=== PATIENT | male | born 1950 | race Caucasian/White ===

== ENCOUNTER 2021-11-15 12:43 | Outpatient (RCR) | payer MEDICARE, OTHER, SELFPAY ==
--- NOTE | 2021-11-15 14:43 | HP.OTEVAL ---
Patient's Visit Information HAMILTON RIOS Jr. is a 71 year old M, referred to Occupational Therapy by Dr. Erick Johnson MD, with a diagnosis of hypopharyngeal cancer. 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 The patient participated in radiation therapy from 07/16/2021-08/28/2021. pt and state he had significate swelling of his neck where was very concerned-pt has been working with Nellie in speech therapy with R and was ref'd due to swelling- - Goals Demonstrate a 20% reduction in edema by d/c: Yes Demonstrate adequate knowledge of self-massage by 2nd week: Yes Demonstrate adequate knowledge skin care/prec by 2nd week: Yes Demonstrate adequate knowledge therapeutic exercises by d/c: Yes Select approp compression garment w/donning/care/wear by d/c: Yes Voice need to replace compression garment every 4-6mo by dc: Yes - Rehabilitation General Assessment: pt demo with need for ed. on skin precautions and signs and symptoms of lymphedema a complication from radiation- today pt looks good- noted to have scar adhesions form sx- and noted edema (better but still has especially if he sleeps on his side) pt demo need for OT services to ed. pt and pts family on life long mtg of lymphedema, compression garment, self manual lymph drainage. Rehabilitation Potential: Good - Anticipated Interventions Education re Diagnosis, Manual Lymph Drainage, Education re Life-long lymphedema Management, Education re Skin Care and Precautions, Education re Self Massage Techniques, Education re Correct Donning Tech,Care&Wearing Sched Comp Garments, Caregiver Training, Home Program - Visit Plan TEXT: Thank you for the opportunity to evaluate your patient. For Medicare and Medicare HMO plans, please review the plan of care and approve it. It will need to be FAXED BACK to us at [phone] for Medicare purposes. Please let me know if there are questions or concerns regarding this plan of care. Physician Signature: Date:
--- NOTE | 2022-04-23 13:35 | HP.OT.NRP ---
TYLER ALLEN Jr. was seen in my office for initial evaluation on 11/15/21. The following Plan of Care was established for this patient: Anticipated Interventions: Education re Diagnosis, Manual Lymph Drainage, Education re Life-long lymphedema Management, Education re Skin Care and Precautions, Education re Self Massage Techniques, Education re Correct Donning Tech,Care&Wearing Sched Comp Garments, Caregiver Training, Home Program This patient was last seen in our office 11/15/21. Pertinent comments regarding their Occupational therapy will appear below: pt was seen for eval only- no further apts. scheduled due to time lapse in services pt d/c. At this point I will be discontinuing this patient from occupational therapy. I would be happy to see this patient again in the future if found appropriate by the physician. Thank you! Neelam Aggarwal, OTR/L, CHT
== END 2021-11-15 19:00 | disposition home or self-care (01) ==
LOC: OT 12:43
PROVIDERS: Referring Provider Radiology Radiation Oncology; Visit Provider Radiology Radiation Oncology
DX: C13.9 Malignant neoplasm of hypopharynx, unspecified (principal)
CPT/HCPCS: 97166; 97530

== ENCOUNTER 2021-11-15 14:00 | Outpatient (RCR) | payer MEDICARE, OTHER, SELFPAY ==
--- NOTE | 2021-07-12 15:02 | HP.SP.AD ---
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 Zenker's diverticulum with surgeries. On second surgery, a lump was found. He underwent FEES assessment of swallow on 05/29/2021. Pt was placed on pureed textures / thin liquids. Will need to repeat objective swallow assessment via MBS at this time, as pt has since had a total laryngopharyngectomy. The patient participated in speech evaluation for alaryngeal communication on 06/29/2021. He was provided and trained with an electrolarynx. He utilizes R intraoral buccal placement at this time. 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 The patient is planned for radiation therapy beginning 07/16/2021. Smoking Status: Former smoker - Pain Is pain an issue with your current prescribed condition?: No - Personal Right Hearing Abillity: Normal Left Hearing Abillity: Normal Visual Assistive Devices: Glasses Patients Living Arrangements: , [place] Patient Allergies - Allergies Allergies Penicillins Allergy (Unknown, Verified 06/28/21 13:03) Other as child Subjective Oral Motor - Subjective Patient Reports: Difficulty being Understood Dentures ill fitting: Yes - Comments Comments: Pt utilizes electrolarynx and pen/paper to communicate with others to meet his needs. His reports great difficulty understanding him at times. Pt's dentures are ill fitting from weight loss and impede speech clarity. Pt reports tight sensation in R side of mouth/cheek and occasional soreness in jaw. Objective Oral Motor - Oral Status Dentition: Upper Dentures, Lower Dentures Additional: Ill-fitting. Greatly improved intelligibility with removal of dentures. - Labial Impairment: Moderate Observation at Rest: Left Droop Closure: WNL Pucker: Moderate Retraction: Moderate Alternating Pucker/Retraction: Moderate Involuntary Movement noted: No - Labial Comments Comments: Lower L lip with apparent weakness, noted at rest and with retraction/pucker. - Lingual Impairment: Mild Observation: Deviated Left Protrusion: WNL Retraction: WNL Lateralization: WNL Involuntary Movement: No - Lingual Comments Comments: Mild L deviation. - Jaw Impairment: WNL Opening: WNL Closing: WNL Involuntary Movement: No - Respiratory Status Respiratory Status: Room Air Subjective Dysphagia - Symptoms Reported Symptoms/Problems with: Food gets stuck, Weight Loss, Hx of Aspiration Other: nasal and oral regurgitation - Current Diet Solids Current Diet: Pureed - Current Diet Liquids Current Liquids: Thin - NPO NPO - Alternative Nutrition Method: Gastrostomy Tube Objective Dysphagia - Thin Liquids Administred via: Cup, Straw Oral Holding: No Patient Report: Head turn helps him to clear sensation of food caught - he uses this strategy intermittently at home. Comments: Audible swallow with sequential and single sips of water via cup and straw. - Pureed Oral Holding: No Gagging: No Stasis: None reported. Comments: Audible swallow. Good oral clearance. - Results Swallowing Within Normal Limits: No Swallowing Diagnosis: Oral Phase Dysphagia, Other Dysphagia Additional: Concern for esophageal dysphagia given total pharyngolaryngectomy's impact. Severity: Mild Dysphagia Assessment - Diet Texture Recommendations Solids Other: Pureed Liquids: Thin NPO: Alternative Nutrition/Hydration Recommended Other: Continue with PEG tube feedings. - Safety Saftey Precautions/Swallowing Recommendations (Check all that Apply): Upright Position at Least 30 Minutes After Meals, Small Sips & Bites when Eating Subjective Dysarthria/Motor - Subjective Subjective: Pt's concerned with pt's quick rate of speech and imprecise articulation, especially with dentures in place, impacting intelligibility. Pt frequently utilized notebook to speak. Pt utilizes electrolarynx at this time to produce phonation for speech production. Objective Dysarthira/Motor - Speech Intelligibility Phonemes: Moderate Sentences: Moderate Conversation: Severe - Volume Loudness: Frio loudness - Observation Observation of Apraxia of Speech: No - Awareness/Strategy Use Uses strategies intermittently to improve intelligibility or listener's understanding of message: Yes - Comments Education regarding strategies to improve speech clarity. -: Thorough education re: strategies to improve speech intelligibility (exaggerated articulation of all sounds, clear pause between words, slow rate of speaking, removal of ill fitting dentures). The patient and his expressed that they are not interested in high tech AAC at this time, which had been thoroughly discussed with speech therapist. PRE PRESS MANAGER recommended continuation of use of notepad as low tech AAC option to repair conversational breakdowns. Educated pt's in providing pt feedback by repeating understood words and having pt write to clarify unintelligible responses. Education well received. Results -: In addition to aphonic speech s/p total pharyngolaryngectomy, the patient presents with moderate dysarthria characterized by quick rate of speech and imprecise articulation. Will recommend continued use of electrolarynx at this time with use of strategies to improve speech clarity. Will also recommend continued use of pen/pad to augment communication when experiencing conversational breakdowns. Pt requires continued training in strategies to improve speech intelligibility in conversation. FOIS - Functional Oral Intake Scale Tube dependent with consistent oral intake of food or liquid: Level 3 Plan - Plan Plan: Will recommend the patient for skilled outpatient dysphagia therapy to address oral phase dysphagia related to hypopharyngeal cancer and to provide the patient further education re: oral motor exercise program and diet texture recommendations. Additionally, will provide ongoing assessment of diet tolerance during and post radiation treatment. The patient also requires skilled speech therapy to address aphonia and dysarthria to improve speech production s/p total phayrngolaryngectomy. Without skilled ST services, the patient is at risk for weight loss and malnutrition. - Recommendations MBS: Yes Treatment Warranted: Yes - Frequency Frequency: 1x/Week Duration: 12 Months - Prognosis Prognosis: Good - Goals that are Established: Determination:: Goals will be added/modified as deemed necessary and appropriate. Therapy will be discontinued when results of re-evaluation indicate therapy is no longer needed or lack of progress has been documented. - Goal #1-5 Goal #1: The patient will participate in conversational tasks within a known context using electrolarynx with 90% intelligibility with min cues for use of compensatory strategies. Goal #2: The patient will participate in MBS study to objectively assess swallow function and provide recommendations for safest, least restrictive diet and compensatory strategies to reduce risk for aspiration. Goal #3: The patient will complete oral motor exercise program to improve labial, lingual, and buccal strength, coordination, and ROM independently 3-5X daily to improve speech intelligibility. Goal #4: The patient will consume least restrictive diet textures without esophageal discomfort, sensation of stasis, or oral/nasal regurgitation with 90% accuracy with minimal verbal cues for use of compensatory strategies to improve swallow function. Education - Patient Instruction Patient Education: Diagnosis, Treatment Plan, Goals, Diet Level, Home Exercise Program Other Education: Provided education re: altered anatomy s/p total pharyngolaryngectomy, alaryngeal speech production options (esophageal speech, tracheoesophageal puncture [TEP], electrolarynx), impact of pt's surgery on swallow function, recommendation and rationale for MBS study. Trained pt in oral motor exercises. Pt provided handout. Return demonstration provided for 4 exercises. PRE PRESS MANAGER spoke with Dr. Caruso and RN, Jessica, regarding patient's interest/candidacy in TEP to discuss in upcoming appointments. Per pt, Dr. Ventura informed him he is a potential candidate for TEP. Person Taught: Patient, Family Teaching Method: Discussion, Demonstration, Handout, Audiovisual, Teach back Response to teaching: Return demonstration, Verbalize understanding, Reinforcement needed
--- NOTE | 2021-09-18 12:40 | HP.SP.ADRE_ITS ---
Previous/Current Goals - Goals 1-5 Previous Goal #1: The patient will participate in conversational tasks within a known context using electrolarynx with 90% intelligibility with min cues for use of compensatory strategies. Goal 1 Status: PROGRESSING - In recent sessions, pt with >90% intelligibility with min cues for use of compensatory strategies. Previous Goal #2: The patient will participate in MBS study to objectively assess swallow function and provide recommendations for safest, least restrictive diet and compensatory strategies to reduce risk for aspiration. Goal 2 Status: Plan for MBS study early November 2021. Previous Goal #3: The patient will complete oral motor exercise program to improve labial, lingual, and buccal strength, coordination, and ROM independently 3-5X daily to improve speech intelligibility. Goal 3 Status: GOAL MET Previous Goal #4: The patient will consume least restrictive diet textures without esophageal discomfort, sensation of stasis, or oral/nasal regurgitation with 90% accuracy with minimal verbal cues for use of compensatory strategies to improve swallow function. Goal 4 Status: PROGRESSING - In the past two weeks, he has consumed oatmeal, noodle/shredded chicken soup, eggs. He eats only 1X daily. He reports having heartburn and a bad after taste. The patient is consuming all drinks orally at t his time. Majority of nutrition being met via PEG tube. Jevity via PEG tube (6 cartons over 4 feedings). Pt tolerating trials of ground textures without esophageal discomfort or sensation of stasis. Recommended the patient begin a food log. Encouraged the patient to track calories of oral intake and attempt eating ~400 calories orally prior to decreasing PEG intake by 1 carton of Jevity (355 calories). Recommended eating at least 3 sittings daily (currently only having 1 snack orally per day) and monitoring weight closely. Previous Goal #5: The patient will complete jaw strength, coordination, and ROM exercises during and post radiation treatment X10 repetitions, 3-5X daily independently to improve mastication abilities. Goal 5 Status: PROGRESSING - Continue 3X daily. - Goals 6-10 Previous Goal #6: The patient will participate in education re: HME and stoma management and accurately demonstrate routine care (cleaning stoma/larytube, donning and doffing HME) of each independently. Goal 6 Status: PROGRESSING - The patient and his have demonstrated excellent progress towards ability to complete routine care of HME and stoma. The patient requires minimal verbal cues to appropriately follow through with proper cleaning of stoma and larytube. 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 Zenker's diverticulum with surgeries. On second surgery, a lump was found. He underwent FEES assessment of swallow on 05/29/2021. Pt was placed on pureed textures / thin liquids. The patient participated in speech evaluation for alaryngeal communication on 06/29/2021. He was provided and trained with an electrolarynx. 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 The patient participated in radiation therapy from 07/16/2021-08/28/2021. Smoking Status: Former smoker - Pain Is pain an issue with your current prescribed condition?: No - Personal Right Hearing Abillity: Normal Left Hearing Abillity: Normal Visual Assistive Devices: Glasses Patients Living Arrangements: , [place] Patient Allergies - Allergies Allergies Penicillins Allergy (Unknown, Verified 09/18/21 09:37) Other as child FOIS - Functional Oral Intake Scale Tube dependent with consistent oral intake of food or liquid: Level 3 Plan - Plan Plan: Will recommend the patient for skilled outpatient dysphagia therapy to address oral and esophageal phase dysphagia related to hypopharyngeal cancer s/p total phayrngolaryngectomy and radiation treatment. Will provide the patient further education re: jaw exercise program and diet texture recommendations. Additionally, will provide ongoing assessment of diet tolerance post radiation treatment. The patient also requires skilled speech therapy to train in alaryngeal speech for improved communication in basic, medical, and social settings. Without skilled ST services, the patient is at risk for weight loss and malnutrition. - Recommendations Treatment Warranted: Yes - Frequency Frequency: Every Other Week Duration: 12 Months - Prognosis Prognosis: Good - Goals that are Established: Determination:: Goals will be added/modified as deemed necessary and appropriate. Therapy will be discontinued when results of re-evaluation indicate therapy is no longer needed or lack of progress has been documented. - Goal #1-5 Goal #1: The patient will participate in conversational tasks within a known context using electrolarynx with 90% intelligibility with min cues for use of compensatory strategies. Goal #2: The patient will participate in MBS study to objectively assess swallow function and provide recommendations for safest, least restrictive diet and compensatory strategies to reduce risk for pharyngeal or esophageal retention. Goal #3: The patient will consume least restrictive diet textures without esophageal discomfort, sensation of stasis, or oral/nasal regurgitation with 90% accuracy with minimal verbal cues for use of compensatory strategies to improve swallow function. Goal #4: The patient will complete jaw strength, coordination, and ROM exercises during and post radiation treatment X10 repetitions, 3-5X daily independently to improve mastication abilities. Goal #5: The patient will participate in education re: HME and stoma management and accurately demonstrate routine care (cleaning stoma/larytube) of each independently. - Goal #6-10 Goal #6: The patient will participate in education re: HME and stoma management and accurately demonstrate routine care (cleaning stoma/larytube, donning and doffing HME) of each independently. Goal #7: .
== END 2021-11-15 19:00 | disposition home or self-care (01) ==
LOC: SP 14:00
PROVIDERS: Referring Provider Student in an Organized Health Care Education/Training Program; Visit Provider Student in an Organized Health Care Education/Training Program
DX: C13.9 Malignant neoplasm of hypopharynx, unspecified (principal); Z93.1 Gastrostomy status; K22.5 Diverticulum of esophagus, acquired; R13.11 Dysphagia, oral phase; R49.1 Aphonia
CPT/HCPCS: 92507; 92522; 92526; 92610